=== PATIENT | female | born 1930 | race Caucasian/White ===

== ENCOUNTER 2017-01-22 13:24 | Emergency (ER) | payer MEDICARE, BC ==
[2017-01-22] MEDS ORDERED: Ibuprofen 400 MG Tab PO ONE (13:45)
--- NOTE | 2017-01-22 13:48 | EDM.PDOC ---
[id number] 4d HIP PAIN [id number] Time Seen by Provider: 01/22/17 13:40 Source: Reports: Patient History Limitations: Reports: No limitations - History of Present Illness INITIAL COMMENTS - FREE TEXT/NARRATIVE: 86 yo white female c/o right hip pain since physical therapy session yesterday with therapist. Pt. s/p recent right hip replacement 12/27/2016. Pt. denies any trauma (falls). Symptom Onset Date: 01/21/17 Symptom Onset Time: 12:00 Occurred When: yesterday Occurred Where: other (physical therapy) Method of Injury: other (over use right hip exercises) Severity: moderate Pain/Injury Location: Reports: lower extremity, right (right hip) Consciousness: Reports: no loss of consciousness Associated Symptoms: Reports: no other symptoms Allergies/ADRs: Allergies Penicillins Allergy (Verified 01/22/17 13:55) Rash Sulfa (Sulfonamide Antibiotics) Allergy (Verified 01/22/17 13:55) Rash Home Medications: Ambulatory Orders Atenolol 1 tab PO DAILY 01/22/17 [Confirmed 01/22/17] Halobetasol Propionate 1 applic TOP ASDIRECTED 01/22/17 [Confirmed 01/22/17] Losartan Potassium [Cozaar] 1 tab PO DAILY 01/22/17 [Confirmed 01/22/17] PARoxetine [Paxil] 10 mg PO DAILY 01/22/17 [Confirmed 01/22/17] Rivaroxaban [Xarelto] 1 tab PO DAILY 01/22/17 [Confirmed 01/22/17] Rosuvastatin [Crestor] 1 tab PO DAILY 01/22/17 [Confirmed 01/22/17] oxyCODONE HCl/Acetaminophen [oxyCODONE-Acetaminophen 5-325] 1 - 2 tab PO QID PRN 01/22/17 [Confirmed 01/22/17] traMADol [Ultram] 1 tab PO ASDIRECTED PRN 01/22/17 [Confirmed 01/22/17] traZODone HCl [Trazodone HCl] 50 mg PO BEDTIME PRN 01/22/17 [Confirmed 01/22/17] Review of Systems - Review of Systems Review Of Systems: See Below Constitutional: Reports: no symptoms Eyes: Reports: no symptoms Ears: Reports: no symptoms Nose: Reports: no symptoms Mouth/Throat: Reports: no symptoms Respiratory: Reports: No Symptoms Cardiovascular: Reports: no symptoms GI/Abdominal: Reports: No symptoms Genitourinary: Reports: no symptoms Musculoskeletal: Reports: joint pain (right hip), muscle pain (right hip and thigh) Skin: Reports: no symptoms Neurological: Reports: No Symptoms Psychiatric: Reports: no symptoms Trauma Exam - Physical Exam Exam: See Below Exam Limited By: No limitations General Appearance: Reports: alert, no apparent distress Head: Reports: atraumatic Eyes: bilateral eye: EOMI Ears: Reports: normal external exam Nose: Reports: normal inspection Throat/Mouth: Reports: Normal inspection Neck: Reports: non-tender Respiratory Exam: Reports: no respiratory distress Cardiovascular: Reports: normal peripheral pulses GI/Abdominal: Reports: normal bowel sounds Back: Reports: full range of motion Extremities: Reports: pain with movement (right hip) Neurologic: Reports: piling cutter II-XII nml as tested, no motor/sensory deficits, oriented x 3 Skin: Reports: Normal color, Warm/dry Course - Vital Signs Text/Narrative:: discussed findings with patient and Last Recorded V/S: Last Vital Signs Temp 36.6 C 01/22/17 14:25 Pulse 62 01/22/17 14:25 Resp 16 01/22/17 13:35 BP 128/53 L 01/22/17 14:25 Pulse Ox 91 L 01/22/17 14:25 - Orders/Labs/Meds Meds: Medications Discontinued Medications Generic Name Dose Route Start Last Admin Trade Name Earlq PRN Reason Stop Dose Admin Cyclobenzaprine HCl 5 mg 01/22/17 13:50 01/22/17 14:04 Flexeril PO 01/22/17 13:51 5 mg ONETIME ONE Administration Ibuprofen 400 mg 01/22/17 13:45 01/22/17 14:04 Motrin PO 01/22/17 13:46 400 mg ONETIME ONE Administration Departure - Departure Time of Disposition: 14:52 Disposition: Home, Self-Care 01 Condition: good Clinical Impression: Hip pain, right Instructions: Hip Pain, Pain Medicine Instructions, [id number] Referrals: Milagros Reno PA [Primary Care Provider] - Forms: ED Department Discharge Additional Instructions: Rest Apply Ice Pack to right hip/thigh area TID X 15 mins. Take your pain medication as prescribed Take the Flexeril 5mg BID # 10 F/U w/ Orthopedics on Tuesday for re-evaluation
[2017-01-22] MEDS ORDERED: Cyclobenzaprine 10 MG Tab PO ONE (13:50)
[2017-01-22 14:26] VITALS: BP 128/53
== END 2017-01-22 15:19 | disposition home or self-care (01) ==
LOC: DL.ED 13:24
DX: M25.551 Pain in right hip (principal); Z88.0 Allergy status to penicillin; Z88.2 Allergy status to sulfonamides; Z96.641 Presence of right artificial hip joint
CPT/HCPCS: 73502; 99283; A9270

== ENCOUNTER 2017-03-08 00:09 | Emergency (ER) | payer MEDICARE, BC ==
[2017-03-08 00:18] VITALS: BP 159/63
--- NOTE | 2017-03-08 00:20 | EDM.PDOC ---
ED HPI GENERAL MEDICAL PROBLEM - General Chief Complaint: Genitourinary Problem Stated Complaint: IN BY AMBULANCE Time Seen by Provider: 03/08/17 00:18 Source of Information: Reports: Patient, EMS History Limitations: Reports: No Limitations - History of Present Illness INITIAL COMMENTS - FREE TEXT/NARRATIVE: EMS called to Pt with blood in urine. Pt states pain low abd' area all day. denies dysuria but did have blood in urine. Right Flank Pain Score (Numeric/FACES): 5 - Related Data Allergies Allergy/AdvReac Type Severity Reaction Status Date / Time Penicillins Allergy Rash Verified 03/08/17 00:22 Sulfa (Sulfonamide Allergy Rash Verified 03/08/17 00:22 Antibiotics) Home Meds: Home Meds Atenolol 1 tab PO DAILY 01/22/17 [History] Losartan Potassium [Cozaar] 1 tab PO DAILY 01/22/17 [History] PARoxetine [Paxil] 10 mg PO DAILY 01/22/17 [History] Rivaroxaban [Xarelto] 1 tab PO DAILY 01/22/17 [History] Rosuvastatin [Crestor] 1 tab PO DAILY 01/22/17 [History] traMADol [Ultram] 1 tab PO ASDIRECTED PRN 01/22/17 [History] traZODone HCl [Trazodone HCl] 50 mg PO BEDTIME PRN 01/22/17 [History] Past Medical History Cardiovascular History: Reports: High Cholesterol, Hypertension Gastrointestinal History: Reports: GERD Psychiatric History: Reports: Anxiety, Depression Endocrine/Metabolic History: Reports: Hypothyroidism - Past Surgical History Musculoskeletal Surgical History: Reports: Hip Replacement Social & Family History - Family History Family Medical History: Noncontributory - Tobacco Use Smoking Status *Q: Former Smoker Used Tobacco, but Quit: No - Caffeine Use Caffeine Use: Reports: Coffee Caffeine Use Comment: 4 cups a day - Recreational Drug Use Recreational Drug Use: No ED ROS GENERAL - Review of Systems Review Of Systems: ROS reveals no pertinent complaints other than HPI. ED EXAM, GI/ABD - Physical Exam Exam: See Below Exam Limited By: No Limitations General Appearance: Alert, WD/WN, Mild Distress, Other (distraught) Ears: Hearing Grossly Normal Throat/Mouth: Normal Voice, No Airway Compromise Head: Atraumatic Neck: Non-Tender, Full Range of Motion Respiratory/Chest: No Respiratory Distress Cardiovascular: Regular Rate, Rhythm GI/Abdominal: Hyperactive Bowel Sounds, Tenderness, Guarding, Other (RLQ tender , slight guarding, no rebound). No: Rebound, Rigidity Neurological: Alert, Oriented, Normal Cognition Psychiatric: Normal Affect, Normal Mood Skin Exam: Warm, Dry Lymphatic: No Adenopathy Course - Vital Signs Last Recorded V/S: Last Vital Signs Temp 35.7 C 03/08/17 00:17 Pulse 66 03/08/17 00:17 Resp 16 03/08/17 00:17 BP 159/63 H 03/08/17 00:17 Pulse Ox 92 L 03/08/17 00:17 - Orders/Labs/Meds Labs: Laboratory Tests 03/08/17 03/08/17 03/08/17 Range/Units 00:33 00:40 00:40 WBC 4.9 L (5.0-10.0) 10^3/uL RBC 4.41 (4.2-5.4) 10^6/uL Hgb 13.1 (12.0-16.0) g/dL Hct 40.5 (37.0-47.0) % MCV 91.8 (80-100) fL MCH 29.7 (27.0-34.0) pg MCHC 32.3 L (33.0-35.0) g/dL Plt Count 186 (150-450) 10^3/uL Neut % (Auto) 53.6 (42.2-75.2) % Lymph % (Auto) 30.9 (20.5-50.1) % [place] % (Auto) 11.0 H (2-8) % Eos % (Auto) 4.1 H (1.0-3.0) % Baso % (Auto) 0.4 (0.0-1.0) % Sodium 138 (135-145) mmol/L Potassium 3.8 (3.6-5.0) mmol/L Chloride 101 (101-111) mmol/L Carbon Dioxide 26.0 (21.0-31.0) mmol/L Anion Gap 14.8 BUN 14 (7-18) mg/dL Creatinine 0.8 (0.6-1.3) mg/dL Est Cr Clr Drug Dosing 47.25 mL/min Estimated GFR (MDRD) > 60 BUN/Creatinine Ratio 17.50 Glucose 142 H (74-105) mg/dL Calcium 9.4 (8.4-10.2) mg/dl Total Bilirubin 0.7 (0.2-1.0) mg/dL AST 27 (10-42) IU/L ALT 25 (10-60) IU/L Alkaline Phosphatase 51 (42-121) IU/L Total Protein 6.9 (6.7-8.2) g/dl Albumin 4.3 (3.2-5.5) g/dl Globulin 2.6 Albumin/Globulin Ratio 1.65 Amylase 55 (28-100) U/L Lipase 40 (22-51) U/L Urine Color [place] (YELLOW) Urine Appearance Turbid (CLEAR) Urine pH 5.5 (5.0-9.0) Ur Specific [place] 1.020 (1.005-1.030) Urine Protein >=300 H (NEGATIVE) Urine Glucose (UA) Negative (NEGATIVE) Urine Ketones Trace H (NEGATIVE) Urine Occult Blood Large H (NEGATIVE) Urine Nitrite Positive H (NEGATIVE) Urine Bilirubin Small H (NEGATIVE) Urine Urobilinogen 1.0 (0.2-1.0) mg/dL Ur Leukocyte Esterase Negative (NEGATIVE) Urine RBC >100 H /HPF Urine WBC 5-10 H (0-5/HPF) /HPF Ur Epithelial Cells Few /HPF Amorphous Sediment Few (0/HPF) /HPF Urine Bacteria Few (0-FEW/HPF) /HPF Urine Mucus Rare /LPF Meds: Medications Discontinued Medications Generic Name Dose Route Start Last Admin Trade Name Freq PRN Reason Stop Dose Admin Nitrofurantoin Macrocrystals 100 mg 03/08/17 01:27 Macrobid PO 03/08/17 01:28 ONETIME ONE Phenazopyridine HCl 95 mg 03/08/17 01:27 Urinary Pain Relief PO 03/08/17 01:28 ONETIME ONE - Re-Assessments/Exams Free Text/Narrative Re-Assessment/Exam: 03/08/17 01:29 results discussed with Pt who is feeling much better now and wants to go home. Departure - Departure Time of Disposition: 01:29 Disposition: Home, Self-Care 01 Condition: good Clinical Impression: UTI, Urinary tract infectious disease - Discharge Information Instructions: Urinary Tract Infection, Adult, [id number] Forms: ED Department Discharge Additional Instructions: 1) rest 2) drink lots of liquids 3) follow up at clinic in few days for repeat U/A 4) recheck if there is any change or concern rx given; macrobid 100mg bid x 20 pyridium 10mg tid prn burning sensation x 12
[2017-03-08 01:07] LABS: CHLORIDE,CL 101 mmol/L (101-111); SODIUM,NA 138 mmol/L (135-145)
[2017-03-08] MEDS ORDERED: Phenazopyridine 95 MG Tab PO ONE (01:27)
[2017-03-08] MEDS ORDERED: Nitrofurantoin Monohydrate/Macrocrystalline 100 MG Cap PO ONE (01:27)
== END 2017-03-08 01:44 | disposition home or self-care (01) ==
LOC: DL.ED 00:09
DX: N39.0 Urinary tract infection, site not specified (principal); F41.9 Anxiety disorder, unspecified; F32.9 Major depressive disorder, single episode, unspecified; E78.00 Pure hypercholesterolemia, unspecified; I10 Essential (primary) hypertension; K21.9 Gastro-esophageal reflux disease without esophagitis; E03.9 Hypothyroidism, unspecified; Z87.891 Personal history of nicotine dependence; Z88.0 Allergy status to penicillin; Z88.2 Allergy status to sulfonamides; Z79.899 Other long term (current) drug therapy
CPT/HCPCS: 36415; 80053; 81001; 82150; 83690; 85025; 99284; A9270; 99283

== ENCOUNTER 2017-10-27 14:00 | Emergency (ER) | payer MEDICARE, BC ==
[2017-10-27 14:16] VITALS: BP 183/53
[2017-10-27 15:18] LABS: CHLORIDE,CL 103 mmol/L (101-111); SODIUM,NA 141 mmol/L (135-145)
--- NOTE | 2017-10-27 15:37 | CT ---
Clinical history: 86-year-old hypertensive female who injured anterior left chest wall in a fall. Scan technique: Volume acquisition of data emergency unenhanced CT scan chest, abdomen and pelvis inc luding bony skeleton and viscera obtained while the patient was lying supine on the Siemens multi sli ce scanner [place], [place]. All data archived in the PACS system for storage, reformatting axial/sagittal/coronal planes and study. Interpretation: 1. No chest wall or rib fracture, underlying lung contusion, atelectasis, dependent pleural effusion or pneumothorax on the left. 2. 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 No fractures. 3. Densely calcified "cast" normal caliber but ectatic thoracic and abdominal aorta. No aneurysm or d issection. 4. Normal cardiac silhouette. No pericardial effusion. No alveolar edema or pleural effusion. 5. No lung mass, hilar lymphadenopathy or focal lobar pneumonia. 6. Acute 6.5 cm diameter lower mid pole peripelvic cyst right kidney. Normal unenhanced left kidney. No retroperitoneal hematoma. 7. Gallbladder, unenhanced liver, stomach, spleen, pancreas and adrenal glands unremarkable. No ascit es or free air. Diverticulosis. 8. No fracture of the pelvis or either hip (total hip replacement on the right). Senescent uterus. Conclusion: Huge right renal cyst. Diverticulosis sigmoid colon. Usual signs of senescence. Total rig ht hip replacement. No skeletal fractures or other signs of acute trauma.
--- NOTE | 2017-10-27 15:51 | EDM.PDOC ---
ED HPI GENERAL MEDICAL PROBLEM - General Chief Complaint: Lower Extremity Injury/Pain Stated Complaint: FELL, BUTT, RIBS Time Seen by Provider: 10/27/17 14:22 Source of Information: Reports: Patient, RN, RN Notes Reviewed History Limitations: Reports: No Limitations - History of Present Illness INITIAL COMMENTS - FREE TEXT/NARRATIVE: Patient states she fell last Tuesday night about 0100 between the couch and end table when stuck between the 2. She fell and hit her hip. Did not hit her head. No loss of consciousness. She is on Xarelto. Her pain is increasing daily. Duration: Getting Worse Location: Reports: Lower Extremity, Right Quality: Reports: Ache Severity: Moderate Improves with: Reports: None Worsens with: Reports: None Associated Symptoms: Reports: No Other Symptoms Treatments DATA STORAGE SPECIALIST: Reports: Other (see below) Other Treatments DATA STORAGE SPECIALIST: oxycondone Right Sacral Pain Score (Numeric/FACES): 7 Left Chest Pain Score (Numeric/FACES): 7 - Related Data Allergies Allergy/AdvReac Type Severity Reaction Status Date / Time Penicillins Allergy Rash Verified 10/27/17 14:17 Sulfa (Sulfonamide Allergy Rash Verified 10/27/17 14:17 Antibiotics) Home Meds: Home Meds Atenolol 1 tab PO DAILY 01/22/17 [History] Losartan Potassium [Cozaar] 1 tab PO DAILY 01/22/17 [History] PARoxetine [Paxil] 10 mg PO DAILY 01/22/17 [History] Rivaroxaban [Xarelto] 1 tab PO DAILY 01/22/17 [History] Rosuvastatin [Crestor] 1 tab PO DAILY 01/22/17 [History] traMADol [Ultram] 1 tab PO ASDIRECTED PRN 01/22/17 [History] traZODone HCl [Trazodone HCl] 50 mg PO BEDTIME PRN 01/22/17 [History] Past Medical History Cardiovascular History: Reports: High Cholesterol, Hypertension Gastrointestinal History: Reports: GERD Neurological History: Reports: TIA Psychiatric History: Reports: Anxiety, Depression Endocrine/Metabolic History: Reports: Hypothyroidism - Past Surgical History Musculoskeletal Surgical History: Reports: Hip Replacement Social & Family History - Family History Family Medical History: Noncontributory - Tobacco Use Smoking Status *Q: Never Smoker Used Tobacco, but Quit: No Second Hand Smoke Exposure: No - Caffeine Use Caffeine Use: Reports: None Caffeine Use Comment: 4 cups a day - Recreational Drug Use Recreational Drug Use: No Review of Systems - Review of Systems Review Of Systems: ROS reveals no pertinent complaints other than HPI. ED EXAM, GENERAL - Physical Exam Exam: See Below Exam Limited By: No Limitations General Appearance: Alert, WD/WN, No Apparent Distress, Other (very soft spoken) Eye Exam: Bilateral Eye: Normal Inspection Ears: Normal External Exam, Normal Canal, Hearing Grossly Normal, Normal TMs Nose: Normal Inspection, Normal Mucosa, No Blood Throat/Mouth: Normal Inspection, Normal Lips, Normal Teeth, Normal Gums, Normal Oropharynx, Normal Voice, No Airway Compromise Head: Atraumatic, Normocephalic Neck: Normal Inspection, Supple, Non-Tender, Full Range of Motion Respiratory/Chest: Crackles (left base. Clear/diminished on the right.) Cardiovascular: Normal Peripheral Pulses, Regular Rate, Rhythm, No Edema, No Gallop, No JVD, No Murmur, No Rub GI/Abdominal: Normal Bowel Sounds, Soft, Non-Tender, No Organomegaly, No Distention, No Abnormal Bruit, No Mass (Female) Exam: Deferred Rectal (Female) Exam: Deferred Back Exam: Other (green ecchymosis on right flank.) Extremities: Normal Inspection, Normal Range of Motion, Non-Tender, Normal Capillary Refill, No Pedal Edema Neurological: Alert, Oriented, CN II-XII Intact, Normal Cognition, Normal Gait, Normal Reflexes, No Motor/Sensory Deficits Psychiatric: Normal Affect, Normal Mood Skin Exam: Warm, Dry, Intact, Normal Color, No Rash Lymphatic: No Adenopathy Course - Vital Signs Last Recorded V/S: Last Vital Signs Temp 98.7 F 10/27/17 14:15 Pulse 62 10/27/17 14:15 Resp 20 10/27/17 14:15 BP 183/53 H 10/27/17 14:15 Pulse Ox 95 10/27/17 14:15 - Orders/Labs/Meds Orders: Active Orders 24 hr Category Date Time Status UA W/MICROSCOPIC [URIN] Stat Lab 10/27/17 14:35 Uncollected Labs: Laboratory Tests 10/27/17 10/27/17 Range/Units 14:48 14:48 WBC 5.1 (5.0-10.0) 10^3/uL RBC 4.67 (4.2-5.4) 10^6/uL Hgb 13.3 (12.0-16.0) g/dL Hct 41.4 (37.0-47.0) % MCV 88.7 D (80-100) fL MCH 28.5 (27.0-34.0) pg MCHC 32.1 L (33.0-35.0) g/dL Plt Count 177 (150-450) 10^3/uL Neut % (Auto) 54.5 (42.2-75.2) % Lymph % (Auto) 28.8 (20.5-50.1) % [place] % (Auto) 13.8 H (2-8) % Eos % (Auto) 2.3 (1.0-3.0) % Baso % (Auto) 0.6 (0.0-1.0) % Sodium 141 (135-145) mmol/L Potassium 4.1 (3.6-5.0) mmol/L Chloride 103 (101-111) mmol/L Carbon Dioxide 29.0 (21.0-31.0) mmol/L Anion Gap 13.1 BUN 14 (7-18) mg/dL Creatinine 0.8 (0.6-1.3) mg/dL Est Cr Clr Drug Dosing 47.25 mL/min Estimated GFR (MDRD) > 60 BUN/Creatinine Ratio 17.50 Glucose 129 H (74-105) mg/dL Calcium 9.1 (8.4-10.2) mg/dl Total Bilirubin 1.0 (0.2-1.0) mg/dL AST 24 (10-42) IU/L ALT 23 (10-60) IU/L Alkaline Phosphatase 43 (42-121) IU/L Troponin I < 0.02 (0.00-0.02) ng/ml Total Protein 6.8 (6.7-8.2) g/dl Albumin 4.1 (3.2-5.5) g/dl Globulin 2.7 Albumin/Globulin Ratio 1.52 - Radiology Interpretation Free Text/Narrative:: CT chest and abdomen: Huge right renal cyst. Diverticulosis sigmoid colon. Usual signs of senescence. Total right hip replacement. No skeletal fractures or other signs of acute trauma. Departure - Departure Time of Disposition: 15:48 Disposition: Home, Self-Care 01 Condition: Fair Clinical Impression: Contusion of hip and thigh Qualifiers: Encounter type: initial encounter Laterality: right Qualified Code(s): S70.01XA - Contusion of right hip, initial encounter Contusion of rib on left side Qualifiers: Encounter type: initial encounter Qualified Code(s): S20.212A - Contusion of left front wall of thorax, initial encounter - Discharge Information Instructions: Fall Prevention in the Home, [id number], Contusion, Easy-to- Read Forms: ED Department Discharge Additional Instructions: Tylenol (acetaminophen) as directed for pain Follow up with your primary care facility as needed. - My Orders Last 24 Hours: My Active Orders 10/27/17 14:35 UA W/MICROSCOPIC [URIN] Stat - Assessment/Plan Last 24 Hours: My Active Orders 10/27/17 14:35 UA W/MICROSCOPIC [URIN] Stat
== END 2017-10-27 15:58 | disposition home or self-care (01) ==
LOC: DL.ED 14:00
DX: S70.01XA Contusion of right hip, initial encounter (principal); S20.212A Contusion of left front wall of thorax, initial encounter; S30.1XXA Contusion of abdominal wall, initial encounter; K57.30 Diverticulosis of large intestine without perforation or abscess without bleeding; I10 Essential (primary) hypertension; E78.00 Pure hypercholesterolemia, unspecified; K21.9 Gastro-esophageal reflux disease without esophagitis; F32.9 Major depressive disorder, single episode, unspecified; E03.9 Hypothyroidism, unspecified; Z96.641 Presence of right artificial hip joint; Z79.899 Other long term (current) drug therapy; Z88.0 Allergy status to penicillin; Z88.2 Allergy status to sulfonamides; W19.XXXA Unspecified fall, initial encounter; W22.8XXA Striking against or struck by other objects, initial encounter
CPT/HCPCS: 36415; 71250; 74176; 80053; 84484; 85025; 99283

== ENCOUNTER 2018-02-13 06:50 | Day surgery (SDC) | payer MEDICARE, BC ==
[~2018-02-13 06:50] MED LIST: Dextrose 5%-0.45% NaCl 1,000 ML IV SCH; Midazolam 1 MG/ML 2 ML SDV ONE; Sodium Chloride 0.9% 10 ML Syringe FLUSH PRN; fentaNYL 100 MCG/2 ML SDV ONE
[2018-02-13] MEDS ORDERED: fentaNYL 100 MCG/2 ML SDV IV ONE ×2 (06:51→07:40)
[2018-02-13] MEDS ORDERED: Midazolam 1 MG/ML 2 ML SDV IV ONE ×2 (06:51→07:41)
[2018-02-13 10:46] VITALS: BP 144/69
--- NOTE | 2018-02-13 12:28 | OR ---
DATE: 02/13/2018 PROCEDURE: Esophagogastroduodenoscopy, NBI, and multiple pinch biopsies. INSTRUMENT USED: GIF-H180 Olympus video panendoscope. PREMEDICATIONS: No oral topical anesthesia used. Fentanyl 50 mcg intravenous, Versed 1 mg intravenous. Nasal O2 cannula. The procedure was done under pulse oximetry, BP recording, and front desk monitor. INDICATION: The patient with high dysphagia unexplained and not responsive to medical measures. Esophagogastroduodenoscopy is performed for detection of any active erosive lesions, Gutierrez esophagus and/or malignancy also under consideration, H. pylori status to be determined, endoscopic hemostasis therapy if needed. The patient on long-term Xarelto. DESCRIPTION OF PROCEDURE: The scope was passed with ease. Adequate visualization of the esophagus was made from upper to lower areas of the esophagus. No upper esophageal lesions identified. No distal esophageal stricture. No uphill or downhill esophageal varices. No Colleen-Shelby tear. No evidence of erosive esophagitis by [place] criteria. No esophageal polyp or tumor mass identified. Some prominent folds were noted at the Z-line on NBI views were obtained, multiple pinch biopsies were obtained and sent for histopathology. No proximal gastric varices noted. Gastric fundus examination by retroflexion showed no polypoid lesions. No gastric ulcer, malignant mass, or vascular ectasia identified. Duodenal bulb showed no ulcer. Visualized second part of the duodenum was unremarkable. Multiple pinch biopsies were taken from the gastric antrum and proximal body and sent for PyloriTek test for H. pylori and histopathology. No bleeding was noted from any of the visualized areas at the completion of examination. Photographs were taken of the duodenal bulb, gastric antrum, fundus, and distal esophagus. IMPRESSION: Normal study. The patient tolerated the procedure well. [facility] /[id number]
== END 2018-02-13 09:56 | disposition home or self-care (01) ==
LOC: DL.ENDO 06:50
PROVIDERS: ATTEND Internal Medicine Gastroenterology
DX: K29.50 Unspecified chronic gastritis without bleeding (principal); K57.30 Diverticulosis of large intestine without perforation or abscess without bleeding; G47.00 Insomnia, unspecified; F41.1 Generalized anxiety disorder; F32.9 Major depressive disorder, single episode, unspecified; Z79.899 Other long term (current) drug therapy; Z88.0 Allergy status to penicillin; Z88.2 Allergy status to sulfonamides; Z90.49 Acquired absence of other specified parts of digestive tract; Z90.710 Acquired absence of both cervix and uterus; Z98.890 Other specified postprocedural states; Z96.649 Presence of unspecified artificial hip joint
CPT/HCPCS: 43239; 87077; J2250; J3010; J7042; 88305